=== PATIENT | male | born 1990 | race Two or more races ===

== ENCOUNTER 2018-04-24 13:23 | Inpatient (IN) | payer SELFPAY ==
[2018-04-24] MEDS ORDERED: NS 1,000 ML IV ONE (13:30)
[2018-04-24] MEDS ORDERED: fentaNYL 100 MCG/2 ML INJ IVP ONE (13:31)
--- NOTE | 2018-04-24 13:36 | EDPHY ---
Addendum entered and electronically signed by Dani Newell, PAC 04/24/18 16:41 : Patient had gone to the floor. Dr. Remedios Castro and I spoke in the ER at 4:25 p.m.. She expressed concern over the patient's admission to her service, notably the patient was now complaining of g neurologic deficits and urinary retention as well as concerns over CT imaging of the chest which showed 2 small lucencies in the chest which may be related to blebs/pneumatocele. Dr. Remedios Castro recommend that Trauma surgery admit the patient and that the patient be brought back down to the ER. Patient was brought back down to the ER. I spoke with Dr. Sarabjti Silva who is in the ER at 4:40 p.m. to evaluate and admit patient primarily. Original Note: H & P Stated Complaint: head/back pain - Personal History Current Tetanus/Diphtheria Vaccine: Unsure Current Tetanus Diphtheria and Acellular Pertussis (TDAP): Unsure - Medical/Surgical History Hx Asthma: No Hx Chronic Respiratory Disease: No Hx Diabetes: No Hx Cardiac Disease: No Hx Renal Disease: No Hx Cirrhosis: No Hx Alcoholism: No Hx HIV/AIDS: No Hx Splenectomy or Spleen Trauma: No Other PMH: PMH: denies Time Seen by Provider: 04/24/18 13:29 HPI/ROS: CHIEF COMPLAINT: Multiple complaints post fall from roof HISTORY OF PRESENT ILLNESS: 28-year-old healthy male arrives via private vehicle, not an ER triage trauma activation, complaining of headache, thoracic pain, lumbar back pain after he was on the roof, approximately 15-20 feet high, slipped, fell backward onto grass impacting his back and occipital head, facing the jenny. Positive brief loss of consciousness per co-worker. No seizure activity. Coworkers were able to pick him up and put him the back of a vehicle and transport him. He is complaining of headache, midline C-spine pain, thoracic pain, lumbar pain. He denies peripheral paresthesia, weakness, numbness, peripheral musculoskeletal pain, calcaneus or knee injury or pain. Denies alcohol or drug use. Denies anticoagulant use history. He is primarily Palestinian-speaking Last oral intake was dinner last night PRIMARY CARE PROVIDER: None REVIEW OF SYSTEMS: A ten point review of systems was performed and is negative with the exception of the items mentioned in the HPI PAST MEDICAL/SURGICAL HISTORY: no anticoagulant use, no relevant medical/ surgical history SOCIAL HISTORY: denies alcohol use at time of incident. 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 Primarily Palestinian speaking PHYSICAL EXAM 1) GENERAL: Well-developed, well-nourished, alert and oriented. Appears uncomfortable. Answering questions appropriately. 2) HEAD: Normocephalic, atraumatic 3) HEENT: Pupils equal, round, reactive to light bilaterally. Negative Horners. Nasopharynx, oropharynx, clear. No deformity or angulation of nose. No septal hematoma. No rhinorrhea. No oral trauma. Ears bilaterally with normal tympanic membranes. No hemotympanum. No fluid or blood in the external auditory canal. No raccoon eyes. No Reddy sign. Teeth are normally aligned with no gross malocclusion, TMJ bilaterally nontender, facial bones nontender including the zygomatic arch, maxilla mandible. 4) NECK: Cervical collar is on.Cervical collar is removed while holding inline traction and patient is unable to completely differentiate between true midline pain versus just lateral of midline pain.Cervical collar is replaced at that point. 5) LUNGS: Clear to auscultation bilaterally, no wheezes, no rhonchi, no retractions. No obvious signs of trauma. No chest wall pain. No flaring, no grunting. Moving symmetrically. No crepitus. 6) HEART: [Regular rate and rhythm, 7) ABDOMEN: No guarding, no rebound, no focal tenderness, no peritoneal signs, no signs of trauma, no ecchymosis 8) MUSCULOSKELETAL: Moving all extremities, no focal areas of tenderness, no obvious trauma. Specifically, bilateral acetabulum nontender, bilateral knees nontender, bilateral feet and calcaneus nontender. Upper extremities nontender with no signs of trauma. 9) BACK: Patient logrolled while holding inline traction. Tender to palpation mid thoracic and mid lumbar region no visible trauma, no abrasion, laceration, no step-off, no effusion. Lower extremities have patella and Achilles reflexes intact to bilaterally strength 5/5. 10) SKIN: No laceration. No abrasion 11) : Normal male external genitalia no signs of trauma or straddle injury. No perineal injury or hematoma. 12) NEURO: Awake, alert, and oriented to person, place and time. Answers questions appropriately. There were no obvious focal neurologic abnormalities. No cerebellar dysfunction. Upper and lower extremities bilaterally with strength 5 / 5, reflexes 2+. DIFFERENTIAL DIAGNOSIS: Not necessarily in any particular order, my differential diagnosis includes, but is not limited to, concussion, skull fracture, intraparenchymal contusion, subarachnoid, subdural and epidural hematoma. The patient understands that this diagnosis is provisional and can never be 100% accurate. (Dani Newell) Constitutional: Initial Vital Signs Heart Rate 90 04/24/18 13:24 Respiratory Rate 24 H 04/24/18 13:24 Blood Pressure 133/75 H 04/24/18 13:24 O2 Sat (%) 99 04/24/18 13:24 O2 Delivery Mode Room Air O2 (L/minute) 3 Allergies/Adverse Reactions: No Known Drug Allergies Allergy (Verified 04/24/18 13:36) Home Medications: Medication Instructions Recorded Naproxen Sodium [Aleve 220 MG (*)] 220 mg PO BID PRN 04/24/18 Medical Decision Making - Diagnostics Imaging Results: Imaging Impressions Abdomen CT 04/24/18 13:31 Impression: 1. Acute mild compression fracture of the superior endplate of T12. 2. 2 tiny lucencies posterior to the right lung, which could related to blebs/ pneumatoceles or less likely pneumothorax. 3. Additional findings as above. Findings discussed with Dani Newell 04/24/2018 at 14:57. Cervical Spine CT 04/24/18 13:31 Impression: Normal noncontrast CT of the brain. CT cervical spine: Cervical vertebral body alignment is normal, and intervertebral disk spaces are maintained. Facet joints align normally. Craniocervical junction is intact. Impression: 1. Negative noncontrast CT of the cervical spine. Results called to. Pieter Newell PA-C, at 2:30 PM at the time of the interpretation. Chest CT 04/24/18 13:31 Impression: 1. Acute mild compression fracture of the superior endplate of T12. 2. 2 tiny lucencies posterior to the right lung, which could related to blebs/ pneumatoceles or less likely pneumothorax. 3. Additional findings as above. Findings discussed with Dani Newell 04/24/2018 at 14:57. Head CT 04/24/18 13:31 Impression: Normal noncontrast CT of the brain. CT cervical spine: Cervical vertebral body alignment is normal, and intervertebral disk spaces are maintained. Facet joints align normally. Craniocervical junction is intact. Impression: 1. Negative noncontrast CT of the cervical spine. Results called to. Pieter Newell PA-C, at 2:30 PM at the time of the interpretation. Lumbar Spine CT 04/24/18 13:31 Impression: 1. Acute mild compression fracture of the superior endplate of T12. 2. 2 tiny lucencies posterior to the right lung, which could related to blebs/ pneumatoceles or less likely pneumothorax. 3. Additional findings as above. Findings discussed with Dani Newell 04/24/2018 at 14:57. Thoracic Spine CT 04/24/18 13:31 Impression: 1. Acute mild compression fracture of the superior endplate of T12. 2. 2 tiny lucencies posterior to the right lung, which could related to blebs/ pneumatoceles or less likely pneumothorax. 3. Additional findings as above. Findings discussed with Dani Newell 04/24/2018 at 14:57. Images reviewed myself (Dani Newell) ED Course/Re-evaluation: 1:32 p.m.: After evaluating the patient I consulted with secondary supervising physician is Dr. Rehan Kearney who subsequently evaluated the patient. 2:36 p.m.: CT head and C-spine negative per Dr. Carson Medeiros interpretation. Images reviewed by myself 2:55 p.m.: CT chest abdomen pelvis including spinal reconstructions positive for T12 25% compression fracture otherwise negative. 3:00 p.m.: Re-evaluation, patient is complaining of continued pain. He remains neurologically intact. 3:02 p.m.: Consultation with Dr. Ayala will consult Neurosurgery 3:13 p.m.: Neurosurgery PA in the ER to evaluate patient. She recommends Adore brace. [facility] has been contacted 320 p.m. Phone consultation with Dr. Sarabjit Silva recommends neurosurgical service admit patient as he is single system trauma (Dani Newell) Other Provider: PHYSICIAN DOCUMENTATION: The patient was evaluated and managed by the Physician Slab Worker and myself. I have reviewed the chart and agree with the findings and plan of care as documented. In addition, I examined the patient myself at 1330. History confirmed as fall onto his back, mechanical. Primary complaint is back and neck pain. Says through ski technician he has decreased sensation whole body including both sides of face and all four extremities. Physical findings as follows: Alert, follows commands, moves all 4 extremities on command; testing sensation to light touch has symmetric stated decrease in both sides of face and all four extremities. Has decreased strength when asked to squeeze hands or move legs, but states is because of pain with effort and not inability to move. Plan for CT scan head cervical spine chest abdomen pelvis with spine reconstructions. 1459: CT scan reviewed, a T12 compression fracture, no other injuries viewed by radiologist. Admission trauma vs. neurosurgery. 1523: Discussed with Shira requested admit to Neurosurgery; will admit to [facility] Stiles in ED seeing patient. I am the secondary supervising physician. (Rehan Kearney) - Data Points Laboratory Results: Laboratory Results 04/24/18 13:15 04/24/18 13:15 Medications Given: Dexamethasone (Decadron Injection) 4 mg IVP Q6H ZENIA Stop: 10/22/18 00:59 Last Admin: 04/25/18 06:32 Dose: 4 mg Lactated Ringer's (Lr) 1,000 mls @ 125 mls/hr IV CONT ZENIA Stop: 10/21/18 17:29 Last Admin: 04/25/18 04:10 Dose: 1,000 mls Methocarbamol (Robaxin) 750 mg PO TID ZENIA Stop: 10/21/18 21:59 Last Admin: 04/24/18 22:06 Dose: 750 mg Morphine Sulfate (Morphine) 1 - 4 mg IVP Q1HR PRN PRN Reason: Pain, Severe Unable to Take PO Stop: 05/04/18 16:12 Last Admin: 04/25/18 07:32 Dose: 2 mg Oxycodone HCl (Oxycodone Ir) 5 - 10 mg PO Q4HRS PRN PRN Reason: Pain, Severe Able to Take PO Stop: 05/04/18 16:12 Last Admin: 04/25/18 01:07 Dose: 5 mg Discontinued Medications Dexamethasone (Decadron Injection) 10 mg IVP ONCE ONE Stop: 04/24/18 18:41 Last Admin: 04/24/18 19:01 Dose: 10 mg Fentanyl (Sublimaze) 100 mcg IVP EDNOW ONE Stop: 04/24/18 13:32 Last Admin: 04/24/18 13:37 Dose: 100 mcg Hydromorphone HCl (Dilaudid) 1 mg IVP EDNOW ONE Stop: 04/24/18 14:19 Last Admin: 04/24/18 14:21 Dose: 1 mg Sodium Chloride (Ns) 1,000 mls @ 0 mls/hr IV ONCE ONE; Wide Open PRN Reason: Protocol Stop: 04/24/18 13:31 Last Admin: 04/24/18 13:37 Dose: 1,000 mls Lorazepam (Ativan Injection) 1 mg IVP EDNOW ONE Stop: 04/24/18 17:14 Last Admin: 04/24/18 17:16 Dose: 1 mg Point of Care Test Results: Chemistry 04/24/18 13:33 POC Sodium 142 mEq/L mEq/L (135-145) POC Potassium 3.1 mEq/L L mEq/L (3.3-5.0) POC Chloride 105 mEq/L mEq/L (97-110) POC BUN 12 mg/dL mg/dL (7-23) POC Creatinine 0.7 mg/dL mg/dL (0.7-1.3) POC Glucose 97 mg/dL mg/dL (70-100) ISTAT H&H 04/24/18 13:33 POC Hgb 17.7 gm/dL H gm/dL (13.7-17.5) POC Hct 52 % H % (40-51) Departure - Departure Disposition: [facility] Inpatient Acute Clinical Impression: Thoracic compression fracture Qualifiers: Encounter type: initial encounter Fracture type: closed Qualified Code(s): S22.000A - Wedge compression fracture of unspecified thoracic vertebra, initial encounter for closed fracture Fall from roof Qualifiers: Encounter type: initial encounter Qualified Code(s): W13.2XXA - Fall from, out of or through roof, initial encounter Condition: Fair
[2018-04-24] MEDS ORDERED: IOPAMIDOL (ISOVUE-300) 100 ML BTL ONE (13:45)
[2018-04-24 13:47] LABS: PLATELET COUNT 278 10^3/uL (150-400)
[2018-04-24 13:49] LABS: INR 0.93 (0.83-1.16); PROTIME(PATIENT) 12.7 SEC (12.0-15.0)
[2018-04-24] MEDS ORDERED: HYDROmorphONE/DILAUDID 2 MG/ML INJ IVP ONE (14:18)
[2018-04-24] MEDS ORDERED: HYDROmorphONE/DILAUDID 1 MG/ML INJ ONE (14:19)
--- NOTE | 2018-04-24 16:23 | GCON ---
[f rep st] CONSULTATION DATE OF CONSULTATION: 04/24/2018 REASON FOR CONSULTATION: Neck pain, midback pain, status post fall. HOSPITAL COURSE/HISTORY/MAJOR MEDICAL FINDINGS: The patient is a Malagasy-speaking only 28-year-old g entleman who fell approximately 20 feet onto his back earlier today. He does report a positive loss of consciousness and is now complaining of pain in his head, pain at the base of his neck, pain in hi s mid back radiating down his legs, and then, he has numbness over his entire body from his mid neck down to his toes. He also states that he feels generally weak in his bilateral upper and bilateral l ower extremities. He is having some urinary retention and has been unable to void. REVIEW OF SYSTEMS: Negative other than what is stated in the HPI. Please see pertinent negatives, p ertinent positives. PAST MEDICAL HISTORY: Negative. Patient states that he has no past medical problems. PAST SURGICAL HISTORY: None. SOCIAL HISTORY: Patient denies drinking any alcohol. He states that he stopped drinking alcohol and using any type of illegal drugs in August. He is Malagasy-speaking only and is in the ER with his mother. 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 FAMILY HISTORY: His dad has a history of heart disease and his mother has a history of diabetes. ALLERGIES: No known drug allergies. MEDICATIONS: No medications. PHYSICAL EXAMINATION: VITAL SIGNS: BP is 123/67, heart rate is 89. He is 100% on 2 L nasal cannula . Temperature is 36.0. NEUROLOGIC: Patient is in no acute distress. He is alert and oriented x3. He answers questions appropriately, and his affect appropriate for the given situation. His face is symmetric. Tongue protrudes midline. PERRLA. The patient does move all extremities, though he sta huseyin that it is hard for him to move his arms, that is painful and they feel weak. Grossly, he is a 5 - in his deltoids, triceps, biceps, wrist flexors, extensors, interossei, intrinsic venue manager, iliopsoas, hamstrings, quadriceps, plantar flexion, dorsiflexion, and EHL. The patient is stiff and guarding to pain. Did not elicit clonus or Babinski reflex. Sensation is intact in bilateral upper and bilateral lower extremities, though the patient does that feeling is somewhat diminished. DIAGNOSTIC REVIEW: Patient underwent a head CT, which was negative for any acute intracranial hemorr argelia, mass effect. He also underwent a cervical spine CT that was negative for any acute cervical spine fracture. The patient underwent a thoracic CT, which demonstrated a mild acute compression fracture of T12. Th ere is a tiny lucency posterior to the right lung, which could represent blebs or less likely pneumot horax. Lumbar spine CT re-demonstrates a fracture of T12. There are no other intraabdominal findings. Abdominal CT. Please see lumbar CT interpretation. DISCUSSION/DECISION-MAKING: The patient is a 28-year-old Malagasy-speaking gentleman who fell approxi mately 20 feet from a roof today. He is having numbness from his neck down with neck pain and low ba ck pain. He does have evidence of a T12 fracture. There is no acute fractures noted in the cervical spine. Given the patient's presentation of diffuse weakness, diffuse numbness, we will go ahead and order a cervical spine MRI and a thoracic spine MRI to further evaluate his spinal cord. He will be admitted to optimize his pain management. This was discussed in detail with Dr. Remedios Castro. /[id number]/MODL
[2018-04-24] MEDS: oxyCODONE IR 5 MG TAB PO PRN ×2 (16:30→22:05)
--- NOTE | 2018-04-24 16:46 | SOAPPROG ---
SOAP Progress Note Assessment/Plan: Assessment: Seen and examined agree with dictation by lissett fernandez pac patient needs stat MRI and review before dosposition to r/o sci in setting of weakness, retention and decreased sensation. Will review and make recommendations. Monitor SBP to maintain map in interim, maintain spinal precautions. Call collection systems technician neurosurgeon with results call with change in neuro status Plan: 04/24/18 16:44 Objective: Vital Signs Temp Pulse Resp BP Pulse Ox 36.8 C 95 17 133/86 H 100 04/24/18 16:08 04/24/18 16:08 04/24/18 16:08 04/24/18 16:08 04/24/18 16:08 PT 12.7 SEC (12.0-15.0) 04/24/18 13:15 INR 0.93 (0.83-1.16) 04/24/18 13:15 ICD10 Worksheet Patient Problems: Problems Problem Status Onset Fall from roof Acute Thoracic compression fracture Acute
[2018-04-24] MEDS ORDERED: LORazepam 2 MG/ML INJ ONE (17:12)
[2018-04-24] MEDS ORDERED: ONDANSETRON 4 MG/2 ML VIAL IVP PRN (17:12)
[2018-04-24] MEDS ORDERED: LORazepam 2 MG/ML INJ IVP ONE (17:13)
[2018-04-24] MEDS ORDERED: LR 1,000 ML IV SCH (17:30)
--- NOTE | 2018-04-24 17:45 | GHP ---
[f rep st] HISTORY AND PHYSICAL DATE OF ADMISSION: 04/24/2018 CHIEF COMPLAINT: Inability to void, generalized weakness, neck pain. PRESENT ILLNESS: A 28-year-old male who fell off a roof, landing on his back. There was ap parently brief loss of consciousness. He was brought to the hospital where a variety of diagnostic t ests were done including CT of head, neck, chest, abdomen and pelvis. Remarkable findings were a T12 compression fracture with approximately 25% loss of height anteriorly, no obvious impingement on the spinal cord, as well as infinitesimally small air bubbles in the periphery of the lung which I suspe ct are small blebs. Otherwise essentially normal studies. While neurological exam was first thought to be normal, the patient was brought back to the emergency room after briefly going up stairs and w as unable to void upstairs, and a catheter was placed, which reportedly gave 800 cc of urine. I repe ated a bladder scan in the emergency department and 11 cc were found. The patient still tells me he feels like he needs to void and cannot. ALLERGIES: None. CURRENT MEDICATIONS: Naprosyn occasionally. SOCIAL HISTORY: Nonsmoker, nondrinker. 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 PHYSICAL EXAM: HEENT: Atraumatic. I took off his collar and palpated his neck. It is nontender. He states his head hurts and his neck hurts. CHEST: There is no supraclavicular nor axillary crepit us. Clavicles are intact. UPPER EXTREMITIES: Appear atraumatic. LUNGS: Clear. HEART: Normal S1 , S2 without murmur. Sternum is stable to compression. ABDOMEN: Soft, benign, nontender. PELVIS: Stable to compression. LOWER EXTREMITIES: Atraumatic. There seems to be hammertoe deformity, part icularly on the right foot. Both feet are slightly odd in morphology. NEURO: The patient response to virtually all neurologic questions with the response of a little. In other words when I touch his feet, he feels it only a little, both dorsum and plantar surfaces. When I touch his hands, he feels it only a little. When I touches his face, he feels it only a little. Motor function seems globall y depressed. When asked to dorsiflex or plantar flex his foot, it is approximately 2/5 in strength. When asked to raise his arm vertical off the bed, he responds very slowly. Aids Counselor strength is about a 2/5 in both hands. It is unclear from his general affect whether he is mentally stung by the whole injury process and incapable of exerting force or he has a neurologic deficit which is hard to explai n based on his mechanism. IMAGING: CT of his head and neck were normal. ASSESSMENT AND PLAN: Neurosurgery has briefly seen the patient, and an MRI of the neck and thoracolu mbar spine is pending. I am not at all concerned about his chest findings of 2 tiny air bubbles. Hi s bladder is currently empty, and we will have to follow this along with bladder scanning and either place an indwelling catheter or do intermittent catheterization if he continues to be unable to void. Clearly 800 mL of retained urine is suggestive of urinary retention. In summary, neurologic deficits of unclear origin. Currently waiting for MRI of cervical and thoraco lumbar spine. He will be admitted to the intermediate care unit for neuro checks and fully evaluated by the neurosurgeon. /[id number]/MODL
[2018-04-24] MEDS ORDERED: DEXAMETHASONE 10 MG/ML VIAL IVP ONE (18:40)
[2018-04-24] MEDS ORDERED: DEXAMETHASONE 10 MG/ML VIAL ONE (18:42)
[2018-04-24] MEDS: METHOCARBAMOL 750 MG TAB PO SCH (22:06)
[2018-04-25] MEDS: DEXAMETHASONE 4 MG/ML VIAL IVP SCH ×4 (00:53→18:40)
[2018-04-25] MEDS: oxyCODONE IR 5 MG TAB PO PRN ×5 (01:07→22:47)
--- NOTE | 2018-04-25 07:22 | PDMN ---
Medical Necessity Medical necessity: Pt meets inpt criteria per MD order and Neurology GRG, est LOS>2MNfor ongoing eval and treatment of T12 compression fx after fall from roof , neurosurg consult, MRI, IV morphine and PO oxycodone for pain, IV Decadron, IVF, NPO, Q 2hr neuro checks, close monitoring on SDU, pt experiencing decreased sensation and urinary retention which will require further eval and treatment, PT/OT/SP evals pending.
--- NOTE | 2018-04-25 08:53 | NEUSURGPN ---
Assessment/Plan: 28y/o male s/p fall 20ft off second story roof with neck pain, low back pain and body numbness. Has a T12 mild compression fracture -Patient is gaurded with exam and is limited secondary to pain -Cervical MRI demonstrates moderate stenosis at C6/7 and disc degeneration at C5 /6 but there is no cord signal changes. -Continue hard cervical collar as patient as has neck pain -Continue Adore brace when>60degrees -Optimize pain management -Okay to eat -PT/OT/PUBLIC WORKS COMMISSIONER evals -Continue steroids,and Q2 hour neuro checks -Discussed in detail with Dr. Duncan -Please notify NS with any change in neuro/motor exam Subjective: Continues with body numbness and pain everywhere Objective: NAD MAEx4 but slowly secondary to pain. Reports diminished sensation in below the neck Catheter Insertion Date: 04/24/18 - Physician Discussed Patient with Dr.: Duncan Neurosurgery Physical Exam - Vitals, I&O, Labs I and O 04/24/18 04/25/18 04/26/18 05:59 05:59 05:59 Intake Total 2627 Output Total 1200 Balance 1427 Intake: Oral (ml) 750 IV Infused (ml) 1877 Lr 1,000 ml @ 125 mls/hr 877 IV CONT ZENIA Rx#: [id number] Output: Urine (ml) 1200 Catheter 1200 Vital Signs Temp Pulse Resp BP Pulse Ox 36.6 C 79 16 113/65 94 04/25/18 04:00 04/25/18 08:00 04/25/18 08:00 04/25/18 08:00 04/25/18 08:00 ICD10 Worksheet Patient Problems: Problems Problem Status Onset Fall from roof Acute Thoracic compression fracture Acute
--- NOTE | 2018-04-25 09:22 | ASMTCASEMG ---
Living Arrangements What is your living Answers: With One Parent arrangement? Who do you live with? Type Of Residence What kind of residence do Answers: House you live in? Discharge Plan Comments Coordination Status Comments Notes: Patient is a 28yo single male who fell off a roof (15-20 ft) and hit his back, occipital head, with a positive brief loss of consciousness per his co-worker. Patient is primarily Yi speaking. Patient was admitted for a T12 compression fracture, difficulty with urination. Patient has neurologic deficits of unknown origin. Awaiting MRI results. OT/PT/TANKERMAN have been ordered. Patient does not have a listing of insurance at this time. His place of employment is [employer]. D/C plan TBD. [facility] will follow. Date Signed: 04/25/2018 09:21 AM Electronically Signed By:Gabrielle Hodge LCSW
[2018-04-25] MEDS: METHOCARBAMOL 750 MG TAB PO SCH ×3 (09:46→21:40)
--- NOTE | 2018-04-25 09:48 | SOAPPROG ---
SOAP Progress Note Assessment/Plan: Assessment:tertiary exam 28 male with fall off roof/ t12 compression fx, cervical disc protrusion oriented/ chest clear, symmetric, nontender/ cor rr/ abd soft, nontender with bs extrem ok/ neuro kaur but weak 2/2 pain/ cn intact imp: c6 disc herniation, t12 compression fx Plan:cervical collar, back brace/ mobilization per NS 04/25/18 09:37 Objective: Vital Signs Temp Pulse Resp BP Pulse Ox 36.6 C 79 16 113/65 94 04/25/18 04:00 04/25/18 08:00 04/25/18 08:00 04/25/18 08:00 04/25/18 08:00 04/24/18 04/25/18 04/26/18 05:59 05:59 05:59 Intake Total 2627 Output Total 1200 Balance 1427 PT 12.7 SEC (12.0-15.0) 04/24/18 13:15 INR 0.93 (0.83-1.16) 04/24/18 13:15 ICD10 Worksheet Patient Problems: Problems Problem Status Onset Fall from roof Acute Thoracic compression fracture Acute
[2018-04-25] MEDS: DIAZEPAM 5 MG TAB PO PRN (11:12)
[2018-04-25] MEDS ORDERED: PROTOCOL POTASSIUM 1 DOSE MISC PRN (17:37)
--- NOTE | 2018-04-25 18:01 | GCON ---
[f rep st] CONSULTATION CRITICAL CARE CONSULTATION DATE OF CONSULTATION: 04/25/2018 REASON FOR CONSULTATION: Intensive care unit evaluation and medical management following a fall. HISTORY: The patient is a healthy 28-year-old who fell approximately 20 feet onto his back. He appa rently landed in some rocks. There was a loss of consciousness. He had head, neck, and back pain. Pain also radiated down into his legs. He also complained of coccyx pain. He had some bilateral upp er and lower extremity weakness which has improved and some urinary difficulties initially. He was s een by Trauma Surgery and Neurosurgery. He was admitted to the intensive care unit. Findings are re markable for a T12 fracture. There was no evidence of a significant head injury. CT scan of the hea d was negative. Subsequent MRIs showed only some moderate stenosis at C6-7 with a small disk herniat ion in that area. A [place] brace was placed, and he has been kept in a cervical collar. He has been cleared to eat and has been seen by Physical Therapy and Speech Therapy. He remains in the intensiv e care unit secondary to pain management and neuro checks. PAST MEDICAL HISTORY: Unremarkable. MEDICATIONS: He was taking p.r.n. Aleve at home. SOCIAL HISTORY: The patient is Lithuanian-speaking. Alcohol and tobacco are denied. 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 FAMILY HISTORY: Noncontributory/negative. REVIEW OF SYSTEMS: Negative x10. PHYSICAL EXAMINATION: GENERAL: A pleasant gentleman who complains of pain in his lower right occipi tiago region, neck, back, and coccyx. The pain in his extremities has improved. He says his strength and sensation feel fairly normal. He is sitting up in the chair. A hard collar and [place] brace are in place. VITAL SIGNS: Within normal limits. Blood pressure is 120/70, heart rate 90, respiratory rate 18. Room air saturations are 92%. He is afebrile. HEENT: Unremarkable for signs of obvious trauma. There is some tenderness to palpation over the right occipital area, but no ecchymosis or sw elling is found. NECK: In a hard collar. CHEST: Clear. Breath sounds are difficult to fully exami ne secondary to the [place] brace. They are diminished at the bases. HEART: Regular rate and rhythm without murmur or gallop. ABDOMEN: Soft, nontender. Bowel sounds are present but decreased. ADAM TOURINARY: A urine catheter is in place. Urine output is excellent. EXTREMITIES: He complains of some right foot pain with palpation of the lateral aspect of the right foot. There is no edema. CECILIA ROLOGIC: Appears intact, although is limited secondary to pain. DATABASE: Radiologic studies are as described elsewhere. Right foot film is negative for any acute fracture. There are some hammertoe deformities, and a liga mentous injury of the forefoot and midfoot cannot be excluded. Laboratory: White blood cell count was 12,000 on admission, hematocrit 47.8. Platelets are normal. PT and PTT are normal. Chemistries remarkable for a potassium of 3.1, but otherwise normal. Urinalysis was negative. Tox screen negative for alcohol. ASSESSMENT: 1. Status post fall with a mild T12 compression fracture and mild herniation of the C6-7 disk with s ome cord narrowing there. Cord itself showed no injuries. The patient is in a hard collar and a Oriental Orthodox ett brace when up. He is doing reasonably well. Pain control is an issue. He is being treated with morphine and oral oxycodone, Robaxin. In addition, he has been given Decadron. 2. Hypokalemia. Potassium replacement will be ordered. PLAN AND RECOMMENDATIONS: The patient will be kept in the intensive care unit on step-down unit stat us. Appropriate pain control will be maintained. Physical and speech therapies will continue to fol low. Neuro checks will be continued. Potassium protocol will be added, and electrolytes followed. Further plans and recommendations will be made based on his progress over the next 12-24 hours. /[id number]/MODL
[2018-04-26] MEDS: DEXAMETHASONE 4 MG/ML VIAL IVP SCH ×3 (01:12→12:43)
[2018-04-26] MEDS: oxyCODONE IR 5 MG TAB PO PRN ×4 (05:48→21:20)
[2018-04-26] MEDS: METHOCARBAMOL 750 MG TAB PO SCH ×3 (07:50→21:21)
--- NOTE | 2018-04-26 09:50 | TRAUMAPN ---
Trauma Progress Note Assessment/Plan: 28-year-old gentleman who fell 20 ft and landed on his feet complains of right foot pain. X-ray of right foot yesterday negative for pathology acute fracture question requirement for further imaging based on his pain profile. He has the T12 acute fracture and stenosis of C6/C7 as well as disc degeneration on C5/C6 Alert oriented Sclerae are anicteric pupils reactive Extra ocular motion intact Collar in place Lungs clear bilaterally Heart regular rate and rhythm Abdomen soft nontender nondistended Weak bilateral upper extremities to squeeze Left foot stronger than right foot with extension Neurologic injuries based on C-spine stinger as well as acute fracture of T12. Collar per Neurosurgery as well as Adore brace. PT OT. Pain control. Possible Ct hope/ MRI of foot today. Objective: Vital Signs Temp Pulse Resp BP Pulse Ox 36.5 C 66 17 127/69 H 92 04/26/18 08:00 04/26/18 08:00 04/26/18 08:00 04/26/18 08:00 04/26/18 08:00 Laboratory Results 04/26/18 05:44 04/25/18 04/26/18 04/27/18 05:59 05:59 05:59 Intake Total 2627 2300 Output Total 1200 3800 Balance 1427 -1500 PT 12.7 SEC (12.0-15.0) 04/24/18 13:15 INR 0.93 (0.83-1.16) 04/24/18 13:15
[2018-04-26] MEDS: DIAZEPAM 5 MG TAB PO PRN (10:32)
[2018-04-26] MEDS ORDERED: LACTULOSE 20 GM/30 ML UDCUP PO PRN (11:51)
[2018-04-26] MEDS ORDERED: BISACODYL 10 MG SUPP PR PRN (11:51)
--- NOTE | 2018-04-26 13:13 | NEUSURGPN ---
Assessment/Plan: 28y/o male s/p fall 20ft off second story roof with neck pain, low back pain and body numbness. Has a T12 mild compression fracture. Initially complaining of body numbness and weakness but this seems effort limited 2/2 pain. -Cervical MRI demonstrates moderate stenosis at C6/7 and disc degeneration at C5 /6 but there is no cord signal changes. -Continue hard cervical collar as patient as has neck pain -Continue Adore brace when >60 degrees -Optimize pain management -Okay to eat -PT/OT/REACTOR FUELING SUPERVISOR evals -Changed steroids to 4bid today, will continue to taper off quickly -okay for q4 neurochecks and TTF today -Please notify NS with any change in neuro/motor exam Subjective: still complaining of neck and back pain but in the chair feeding himself Urinary Catheter in Place: No Catheter Insertion Date: 04/24/18 Neurosurgery Physical Exam - Vitals, I&O, Labs I and O 04/25/18 04/26/18 04/27/18 05:59 05:59 05:59 Intake Total 2627 2300 Output Total 1200 3800 Balance 1427 -1500 Intake: Oral (ml) 750 1400 IV Intake (ml) 900 IV Infused (ml) 1877 Lr 1,000 ml @ 125 mls/hr 877 IV CONT ZENIA Rx#: [id number] Output: Urine (ml) 1200 3800 Catheter 1200 3800 Other: Bladder Scan Volume (ml) Catheter 0 Vital Signs Temp Pulse Resp BP Pulse Ox 36.5 C 66 17 127/69 H 92 04/26/18 08:00 04/26/18 08:00 04/26/18 08:00 04/26/18 08:00 04/26/18 08:00 Laboratory Results 04/26/18 05:44 ICD10 Worksheet Patient Problems: Problems Problem Status Onset Fall from roof Acute Thoracic compression fracture Acute
--- NOTE | 2018-04-26 14:23 | PDINTPN ---
Mobile Marketing Manager Progress Note Assessment/Plan: Assessment: Status post fall Mild C 5-6 disc herniation, mild T12 compression fracture without evidence of significant cord injury. In a hard collar and a Adore brace when up. On steroids. Pain control appears appropriate. R foot pain, without evidence of fracture by x-ray or CT Hypokalemia: On replacement protocols Plan: Continue present care and neuro checks. Continue pain management. Taper steroids per neuro surgery. Can possibly transfer to a medical-surgical/ neuro bed today. Subjective: Doing okay. Back, neck and foot pain present. Some tingling sensation lower extremities, strength better Objective: Vital Signs Temp Pulse Resp BP Pulse Ox 36.5 C 66 17 127/69 H 92 04/26/18 08:00 04/26/18 08:00 04/26/18 08:00 04/26/18 08:00 04/26/18 08:00 Laboratory Results 04/26/18 05:44 04/25/18 04/26/18 04/27/18 05:59 05:59 05:59 Intake Total 2627 2300 Output Total 1200 3800 Balance 1427 -1500 PT 12.7 SEC (12.0-15.0) 04/24/18 13:15 INR 0.93 (0.83-1.16) 04/24/18 13:15 Physical Exam - Physical Exam General Appearance: alert, no apparent distress EENT: PERRL/EOMI, other (On room air) Neck: other (Hard collar) Respiratory: lungs clear Cardiac/Chest: regular rate, rhythm, other ([place] brace in place) Abdomen: non-tender, soft, No normal bowel sounds (Decreased, present) Skin: normal color, warm/dry Extremities: other (Tenderness over right foot remains present), No pedal edema , No swelling (Tenderness) Neuro/Psych: no motor/sensory deficits (Moves all extremities but somewhat weak , nonfocal), sensory deficit (Complains of tingling sensation lower extremities) , No cognition abnormalities ICD10 Worksheet Patient Problems: Problems Problem Status Onset Thoracic compression fracture Acute Fall from roof Acute
[2018-04-26] MEDS: MAGNESIUM HYDROXIDE 30 ML UDCUP PO PRN (14:48)
[2018-04-26] MEDS: POLYETHYLENE GLYCOL 3350 17 GM PKT PO PRN (14:49)
[2018-04-26] MEDS: DEXAMETHASONE 4 MG TAB PO SCH (21:20)
[2018-04-27] MEDS: SENNOSIDES/DOCUSATE SODIUM TAB PO SCH ×3 (00:17→20:15)
[2018-04-27] MEDS: oxyCODONE IR 5 MG TAB PO PRN ×5 (04:51→20:16)
--- NOTE | 2018-04-27 07:03 | NEUSURGPN ---
Assessment/Plan: 28y/o male s/p fall 20ft off second story roof with neck pain, low back pain and body numbness. Has a T12 mild compression fracture. Initially complaining of body numbness and weakness but this seems effort limited 2/2 pain. -Cervical MRI demonstrates moderate stenosis at C6/7 and disc degeneration at C5 /6 but there is no cord signal changes. -Continue hard cervical collar as patient as has neck pain -Continue Adore brace when >60 degrees -Optimize pain management, improved and more comfortable this morning -PT/OT/SKEIN WINDER evals -Changed steroids to 4bid today, will continue to taper off quickly -Can work towards dispo if improved in the next 1-2 days -Please notify NS with any change in neuro/motor exam Subjective: Still ahs some right sided neck pain and low back pain. Still some little decrease in Sensation in arms and legs Objective: More comfortable, sitting upright in bed this am. NAD A&Ox3 MAEx4 5/5 and equal in BUE and BLE. Catheter Insertion Date: 04/24/18 - Physician Discussed Patient with : [facility] Physical Exam - Vitals, I&O, Labs I and O 04/26/18 04/27/18 04/28/18 05:59 05:59 05:59 Intake Total 2300 1650 Output Total 3800 1650 Balance -1500 0 Intake: Oral (ml) 1400 1650 IV Intake (ml) 900 Output: Urine (ml) 3800 1650 Bedside Commode 750 Catheter 3800 750 Urinal 150 Other: Intake Quantity Yes Sufficient Number of Voids Bedside Commode 1 Number of Stools Bedside Commode 1 Bladder Scan Volume (ml) Catheter 0 Vital Signs Temp Pulse Resp BP Pulse Ox 36.6 C 58 L 16 111/58 L 95 04/27/18 04:00 04/27/18 04:00 04/27/18 04:00 04/27/18 04:00 04/27/18 04:00 Laboratory Results 04/27/18 04:20 04/27/18 04:20 ICD10 Worksheet Patient Problems: Problems Problem Status Onset Fall from roof Acute Thoracic compression fracture Acute
[2018-04-27] MEDS: POLYETHYLENE GLYCOL 3350 17 GM PKT PO PRN (08:48)
[2018-04-27] MEDS: METHOCARBAMOL 750 MG TAB PO SCH ×3 (08:48→21:49)
[2018-04-27] MEDS: DEXAMETHASONE 4 MG TAB PO SCH ×2 (08:48→20:15)
--- NOTE | 2018-04-27 09:09 | TRAUMAPN ---
Trauma Progress Note Assessment/Plan: 28y/o male s/p fall 20ft off second story roof with neck pain, low back pain and body numbness. Has a T12 mild compression fracture. Has pain in right foot - CT negative -Cervical MRI demonstrates moderate stenosis at C6/7 and disc degeneration at C5 /6 but there is no cord signal changes. -Continue hard cervical collar as patient as has neck pain -Continue Adore brace when >60 degrees -PT/OT/FURNITURE UPHOLSTERER APPRENTICE evals -Steroids per NSG - may be contributing to wbc. Will order CBC for tomorrow to make sure it is trending Subjective: S: Complains of neck, back and r foot pain Objective: Vital Signs Temp Pulse Resp BP Pulse Ox 36.7 C 64 16 109/55 L 94 04/27/18 07:23 04/27/18 07:23 04/27/18 07:23 04/27/18 07:23 04/27/18 07:23 Laboratory Results 04/27/18 04:20 04/27/18 04:20 04/26/18 04/27/18 04/28/18 05:59 05:59 05:59 Intake Total 2300 1650 Output Total 3800 1650 425 Balance -1500 0 -425 PT 12.7 SEC (12.0-15.0) 04/24/18 13:15 INR 0.93 (0.83-1.16) 04/24/18 13:15 Physical Exam - Physical Exam General Appearance: WD/WN, no apparent distress EENT: PERRL/EOMI, normal ENT inspection, No scleral icterus (R), No scleral icterus (L), No hearing deficit Neck: other (in collar) Respiratory: chest non-tender, lungs clear Cardiac/Chest: regular rate, rhythm Abdomen: normal bowel sounds, non-tender, soft Extremities: normal range of motion Neuro/Psych: other (some numbness. Pain in back when moving foot)
[2018-04-27] MEDS: DIAZEPAM 5 MG TAB PO PRN ×2 (09:57→18:32)
--- NOTE | 2018-04-27 12:03 | ASMTCMCOM ---
CM Note CM Note Notes: Pt will have inpt rehab eval on Saturday. Pt's insurance situation unclear. Pt's mother provided a letter from pt's employer, [employer], stating that he makes $945/mo.Alerted financial and [employer]. Letter in chart. CM to follow. Date Signed: 04/27/2018 12:02 PM Electronically Signed By:Fabienne Latif LCSW
[2018-04-28] MEDS: oxyCODONE IR 5 MG TAB PO PRN ×4 (03:12→18:20)
[2018-04-28] MEDS: DIAZEPAM 5 MG TAB PO PRN (03:14)
[2018-04-28 05:02] LABS: PLATELET COUNT 248 10^3/uL (150-400)
[2018-04-28] MEDS: SENNOSIDES/DOCUSATE SODIUM TAB PO SCH ×2 (09:31→21:35)
[2018-04-28] MEDS: METHOCARBAMOL 750 MG TAB PO SCH ×3 (09:31→21:36)
[2018-04-28] MEDS: DEXAMETHASONE 4 MG TAB PO SCH ×2 (09:31→21:35)
--- NOTE | 2018-04-28 09:34 | NEUSURGPN ---
Assessment/Plan: 28y/o male s/p fall 20ft off second story roof with neck pain, low back pain and body numbness. Has a T12 mild compression fracture. Initially complaining of body numbness and weakness but this seems effort limited 2/2 pain. -Cervical MRI demonstrates moderate stenosis at C6/7 and disc degeneration at C5 /6 but there is no cord signal changes. -Continue hard cervical collar as patient as has neck pain -Continue Adore brace when >60 degrees -Optimize pain management, improved and ambulated to bathroom with brace independently per RN report -Will give one dose Toradol today and start low dose gabapentin -Patient complaining of right foot pain, xrays done did not demonstrate and acute fracture -PT/OT/UROLOGIST PHYSICIAN evals -Steroids-will continue to taper off quickly -Can work towards dispo if improved in the next 1-2 days, case management to eval dispo options -Please notify NS with any change in neuro/motor exam Discussed patient with Dr Duncan Subjective: Right foot pain, bilateral leg pain Objective: sitting upright in bed this am A&Ox3 MAEx4 5/5 and equal in BUE and BLE Neuro Check Frequency: per routine Urinary Catheter in Place: No Catheter Insertion Date: 04/24/18 - Physician Discussed Patient with Dr.: [facility] Physical Exam - Vitals, I&O, Labs I and O 04/27/18 04/28/18 04/29/18 05:59 05:59 05:59 Intake Total 1650 875 Output Total 1650 885 350 Balance 0 -10 -350 Intake: Oral (ml) 1650 875 Output: Urine (ml) 1650 885 350 Bedside Commode 750 Catheter 750 Urinal 150 885 350 Other: Intake Quantity Yes Yes Sufficient Number of Voids Bedside Commode 1 Toilet 1 Urinal 1 Number of Stools Bedside Commode 1 Vital Signs Temp Pulse Resp BP Pulse Ox 36.3 C 56 L 13 113/64 95 04/28/18 08:00 04/28/18 08:00 04/28/18 08:00 04/28/18 08:00 04/28/18 08:00 Laboratory Results 04/28/18 04:34 04/28/18 04:34 ICD10 Worksheet Patient Problems: Problems Problem Status Onset Fall from roof Acute Thoracic compression fracture Acute
[2018-04-28] MEDS ORDERED: KETOROLAC 30 MG/1 ML SDV IVP ONE (09:35)
[2018-04-28] MEDS: GABAPENTIN 100 MG CAP PO SCH ×2 (15:59→21:36)
--- NOTE | 2018-04-28 16:53 | ASMTCMCOM ---
CM Note CM Note Notes: Pt admitted to hospital after falling off roof while working. Stephanie from [employer] met with pt and he should qualify for emergency Medicaid but otherwise has no insurance for any rehab needs. PT/OT recommendation is for Inpt Rehab, CM to f/u with Veda at inpt rehab to find out if they can help with this pt. DC Plan: TBD Date Signed: 04/28/2018 04:52 PM Electronically Signed By:Eboni Alberto RN
[2018-04-28] MEDS ORDERED: MELATONIN 3 MG TAB PO PRN (20:41)
--- NOTE | 2018-04-28 20:58 | PDCONSULT ---
Snow Plow Operator Note: PSYCHIATRY MD CONSULTATION Requesting provider: Zina Farah MANAGEMENT INSTRUCTOR, Neurosurgical service Date of request and evaluation: 04/28/2018 Reason for request: Evaluation and medication recommendations for expressed passive suicidal ideations and insomnia s/p fall with TBI and back injury Time spent interviewing patient: 55 minutes, with certified prosthetist/orthotist Juany. Spiritual support also met with patient prior to current evaluation. Also spoke with MANAGEMENT INSTRUCTOR and RN regarding this patient. Patient is American-speaking only. 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 Complains of diffuse body aches, numbness/tingling, weakness, headaches and occasional vision changes (losing focus), with difficulty concentrating, +often reliving the trauma with thinking/feeling he is falling, and perseverative thoughts/worries about his future, +insomnia. Has been working to support himself, pay rent for him and his with unborn child, and trying to support extended family (including his mother and sending $ to [employer] to support 2 nephews). He admits to feeling depressed because culturally, as a man, he does not feel worthwhile or useful if he is unable to work and support his family. is expecting their 1st child, a son, in early July. "I want to fight and overcome this...I don't want to ..." "I am worried about work, no resources, paying rent...When I leave, if I can return to same work? It is stressful to be poor." "I feel thankful to the Lord that I did not ...I have to fight...if I am well , I can help my family." Able to state he now understands this "recovery is a process, I didn't understand this before". Admits to +depressed mood, occasional crying spells, decr concentration, decr energy, sleep disturbance, and recently having passive SI, with thoughts to not wake up after closing eyes. Does not feel this way presently, because family and friends have been supportive, and staff has been helpful and encouraging. Is trying to remain hopeful with this support, and his spiritual beliefs, and states this gives him the motivation to work hard on his recovery with hope to return to work and hold/play with his yet unborn son. Worries about his mother who has already lost 2 of her 3 sons, and has looked very saddened on her recent visit to see him. +insomnia, reporting only brief periods of sleep, trouble falling and staying asleep, and +intrusive recollections of falling. PAST PSYCH HX: Denies formal dx or treatment for any psychiatric illness. Admits to feeling he was recently "getting over" sadness/depression related to loss of his 2 brothers. Never on medications. SUBSTANCE USE HX: denied recent/current. Tried smoking socially and EtOH with friends after work socially and occasionally when younger. FAMILY PSYCH HX: denies, although reports mother seems more depressed recently SOCIAL HX: From [place]. of 1.5yrs is and expecting son 08/02. Currently renting a "not so nice" basement in [place] with his . Mother in [place], and patient helps her pay rent. Mother works in housekeeping. Has 2 sisters in the [place], and 2 brothers were killed in violence in [place] within past 3 years (one during Christmastime and one on his ), one brother had just gotten visa to come to [place]. 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 MSE: alert, calm, cooperative, male lying in hosp bed, neck brace restricting movement, soft-spoken, low voume speech, normal rate, fair eye contact, mood depressed, affect restricted, dysphoric, no thought disorder evident, denied psychotic symptoms, admits to recent passive SI but denied any current suicidal thoughts, plan or intent. denied any thoughts to harm others. insight seemed good, judgment seemed intact. formal cognitive assessment not done. pt was alert to person, hosp, situation. date and time not asked. 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 Patient recalls falling, but then reports loss of consciousness, with no memory until he woke up in the hospital several hours later with family around on 04/24/18. Over his hospital course, he has continued to struggle with pain, weakness, numbness, and emotional stressors related to this fall. He expressed passive suicidal ideation recently but denies any plans or intent to harm himself, and reports being motivated for recovery because he has , mother, and is an expectant father. Seems to have experienced some depressive vs bereavement symptoms after his 2 brothers were killed in [place], and now re-experiencing such symptoms following current injury. Worried about how to support immediate and extended family, if he will be able to return to work, and finances, if he will physically be able to hold/carry/play with his son (due 08/02), also has no insurance. Having headaches, vertigo, concentration problems, insomnia in addition to pain , weakness, sensory complaints. DIAGNOSIS: Adjustment d/o with depressed mood Acute Stress Disorder Neurocognitive disorder, unspecified, due to Traumatic Brain Injury RECOMMENDATIONS: -Not felt to be at any acute risk of self harm and does not meet M-1 criteria for invol psychiatric hospitalization at this time. Patient expresses future- oriented thinking, with realistic worries, and is motivated to live and work on recovery by his focus on his family, although culturally admits to struggling with not being able to provide for his family at this time. -patient seems to have sustained significant TBI based on his reported LOC, reporting cognitive dysfunction (confusion, including not knowing what to do when looking at telephone). Query whether MRI would be of benefit to assess extent of injury. also ST assessment. Will add B12 and TSH to labs. -Pt and family will need education on TBI and possible sequelae. also referral to any support services in community if available (like [facility] [place]), lizzy if any new zealander speaking support/written education. TBI can also place pt at further incr risk of depression. Education in American about depression and acute stress disorder/ptsd would be helpful since patient is also at increased risk of depression and PTSD, -Recommend provide written information in addition to verbal, since reports forgetfulness, and is with TBI. Provided with paper and pen, and also encouraged pt and to write questions and concerns since they report having many when alone or no regional property manager around, but then forget. -With TBI, and his possible related cognitive impairment, would limit or avoid any meds which could cause worsening of cognition. -Would initially trial Mirtazapine 15mg at HS, an antidepressant which can also be helpful for sleep. Lower dose more effective for sleep. And add Melatonin prn for insomnia. Likely will need addition of SSRI for anxiety/depression as he reports having perseverative worries related to current stressors and life changes, and possible premorbid depression. Will make one med change at at time for now. Does have prn Valium but for muscle spasms. Will continue to follow and assess. -Also, referral to outpatient mental health after d/c would be important for additional therapy support and to psychiatry for ongoing monitoring of medications. And any resources for additional financial supports, including donations and resources for new parents would be helpful. -Will also discuss with behavioral health RN, bEoni Servin for possible providing of further support/coping strategies while in hospital. Pt also finds spiritual support supportive. Patient is at increased risk of developing PTSD. -Cont with pain management- pt notes neck brace very uncomfortable and his understanding was that a smaller one was going to be provided. Also R foot pain , states he was told he would get some type of support for his foot to keep it in a neutral position, but not sure if this was ordered. -Recommend use of certified prosthetist/orthotist as much as possible to prevent any miscommunications. Also provide with written information in new zealander, and assess his level of understanding of written info (perhaps ST can help with this) lizzy with TBI and unknown level of education Thank you for consulting Psychiatry service. Will continue to follow along during hospital course and make recommendations as indicated. Please do not hesitate to contact [facility] to call me with any questions.
[2018-04-28] MEDS: MIRTAZAPINE 15 MG ODTAB PO SCH (21:35)
[2018-04-29] MEDS: oxyCODONE IR 5 MG TAB PO PRN ×4 (04:11→21:33)
--- NOTE | 2018-04-29 07:37 | NEUSURGPN ---
Assessment/Plan: 28y/o male s/p fall 20ft off second story roof with neck pain, low back pain and body numbness. Has a T12 mild compression fracture. Initially complaining of body numbness and weakness but this seems effort limited 2/2 pain. -Cervical MRI demonstrates moderate stenosis at C6/7 and disc degeneration at C5 /6 but there is no cord signal changes. -Continue hard cervical collar as patient as has neck pain, will have [employer] fit with [place] collar today -Continue Adore brace when >60 degrees -Optimize pain management, started Gabapentin 100mg TID yesterday, patient still reports tingling/pain in all extremities this am -Patient complaining of right foot pain, xrays done did not demonstrate and acute fracture -PT/OT/FILAMENT TESTER evals -Steroids-will continue to taper off quickly -Can work towards dispo if improved in the next 1-2 days, case management to eval dispo options -Patient reported depression, having flashbacks of fall and trouble sleeping yesterday. Psych consulted-we appreciate their input on his care. -Please notify NS with any change in neuro/motor exam Discussed patient with Dr Duncan Subjective: Continued pain in all extremities Objective: sitting upright in bed this am A&Ox3 MAEx4 5/5 and equal in BUE and BLE Decreased sedation in BLE to light touch Neuro Check Frequency: per routine Urinary Catheter in Place: No Catheter Insertion Date: 04/24/18 - Physician Discussed Patient with Dr.: Duncan Neurosurgery Physical Exam - Vitals, I&O, Labs I and O 04/28/18 04/29/18 04/30/18 05:59 05:59 05:59 Intake Total 875 Output Total 885 350 Balance -10 -350 Weight 72.57 kg Intake: Oral (ml) 875 Output: Urine (ml) 885 350 Urinal 885 350 Other: Intake Quantity Yes Sufficient Number of Voids Toilet 1 1 Urinal 1 Number of Stools Toilet 1 Bladder Scan Volume (ml) Toilet 201 Vital Signs Temp Pulse Resp BP Pulse Ox 36.5 C 77 16 135/76 H 95 04/28/18 20:00 04/28/18 20:00 04/28/18 20:00 04/28/18 20:00 04/28/18 20:00 Laboratory Results 04/28/18 04:34 04/29/18 04:45 ICD10 Worksheet Patient Problems: Problems Problem Status Onset Fall from roof Acute Thoracic compression fracture Acute
[2018-04-29] MEDS: METHOCARBAMOL 750 MG TAB PO SCH ×3 (09:10→21:34)
[2018-04-29] MEDS: GABAPENTIN 100 MG CAP PO SCH ×3 (09:11→21:35)
[2018-04-29] MEDS: MAGNESIUM HYDROXIDE 30 ML UDCUP PO PRN (09:12)
[2018-04-29] MEDS: DEXAMETHASONE 4 MG TAB PO SCH ×2 (09:12→21:34)
[2018-04-29] MEDS: SENNOSIDES/DOCUSATE SODIUM TAB PO SCH ×2 (09:12→21:36)
[2018-04-29] MEDS: DIAZEPAM 5 MG TAB PO PRN (13:07)
[2018-04-29] MEDS: ENOXAPARIN 40 MG/0.4 ML SYR SC SCH (13:08)
[2018-04-29] MEDS: MIRTAZAPINE 15 MG ODTAB PO SCH (21:34)
[2018-04-30] MEDS: oxyCODONE IR 5 MG TAB PO PRN ×4 (03:14→20:44)
[2018-04-30] MEDS: METHOCARBAMOL 750 MG TAB PO SCH ×3 (06:01→17:03)
--- NOTE | 2018-04-30 07:34 | NEUSURGPN ---
Assessment/Plan: Assessment: 28 y/o male s/p fall 20 ft off second story roof with neck pain, low back pain and body numbness. Has a T12 mild compression fracture. Initially complaining of body numbness and weakness but this seems effort limited 2/2 pain Plan: -prior cervical MRI demonstrates moderate stenosis at C6/7 and disc degeneration at C5/6 but there is no cord signal changes -continue hard cervical collar as patient as has neck pain-[place] fitting well -continue [place] brace when >60 degrees and out of bed -optimize pain management, started Gabapentin 100mg TID, patient still reports tingling in all extremities this am -patient complaining of right foot pain, xrays done did not demonstrate and acute fracture -PT/OT/SHAPE CARVER-CPM -Steroids-will continue to taper off quickly -Can work towards dispo if improved in the next 1-2 days, case management to eval dispo options -Patient reported depression, having flashbacks of fall and trouble sleeping yesterday. Psych consulted-we appreciate their input on his care. -Please notify NS with any change in neuro/motor exam -discussed patient with Dr Duncan Subjective: No new complaints or concerns. Chart reviewed Objective: Awake and alert. NAD A&Ox3 MAEx4 5/5 and equal in BUE and BLE Decreased sedation in BLE to light touch with right worse than left Neuro Check Frequency: per routine Urinary Catheter in Place: No Catheter Insertion Date: 04/24/18 - Physician Discussed Patient with : [facility] Neurosurgery Physical Exam - Vitals, I&O, Labs I and O 04/29/18 04/30/18 05/01/18 05:59 05:59 05:59 Intake Total 350 Output Total 350 400 Balance -350 -50 Weight 72.57 kg Intake: Oral (ml) 350 Output: Urine (ml) 350 400 Toilet 400 Urinal 350 Other: Intake Quantity Yes Sufficient Number of Voids Toilet 1 1 Urinal 1 Number of Stools Toilet 1 Bladder Scan Volume (ml) Toilet 201 Vital Signs Temp Pulse Resp BP Pulse Ox 36.6 C 70 16 126/71 H 94 04/30/18 00:00 04/30/18 00:00 04/30/18 00:00 04/30/18 00:00 04/30/18 00:00 Laboratory Results 04/28/18 04:34 08/01/18 04:44 ICD10 Worksheet Patient Problems: Problems Problem Status Onset Fall from roof Acute Thoracic compression fracture Acute
[2018-04-30] MEDS: ENOXAPARIN 40 MG/0.4 ML SYR SC SCH (10:11)
[2018-04-30] MEDS: GABAPENTIN 100 MG CAP PO SCH ×3 (10:11→22:32)
[2018-04-30] MEDS: DEXAMETHASONE 4 MG TAB PO SCH ×2 (10:11→20:43)
[2018-04-30] MEDS: SENNOSIDES/DOCUSATE SODIUM TAB PO SCH ×2 (10:12→20:43)
--- NOTE | 2018-04-30 19:22 | TRAUMAPN ---
Trauma Progress Note Assessment/Plan: 04/30/2018 Asked by nursing to re consult due to "bilateral hip pain" Assessment: Seems to not remember what he has been told on multiple occasions (presumably due to head injury) He told nursing that he had bilateral hip pain. Xrays negative. Working with an book binder it becomes clear that " bilateral hip pain" is actually bilateral SI joint pain and coccygeal pain. Xrays reviewed and there is no evidence of structural abnormalities in the hips. I did not see any coccygeal injury/displacement. I reassured the patient ( using an book binder) that his pains focal and radicular are probably related to his injuries and may take some time to resolve. Medications are adjusted to see if other similar medicines may work more efficiently. Plan: Trauma will sign off again. If there is anything else that we can address please reconsult Objective: Vital Signs Temp Pulse Resp BP Pulse Ox 36.4 C 79 15 136/63 H 95 04/30/18 15:24 04/30/18 15:24 04/30/18 15:24 04/30/18 15:24 04/30/18 15:24 Laboratory Results 04/28/18 04:34 04/30/18 04:44 04/29/18 04/30/18 05/01/18 05:59 05:59 05:59 Intake Total 350 1200 Output Total 350 400 Balance -350 -50 1200 PT 12.7 SEC (12.0-15.0) 04/24/18 13:15 INR 0.93 (0.83-1.16) 04/24/18 13:15
[2018-04-30] MEDS: PANTOPRAZOLE SODIUM 40 MG TAB PO SCH (20:43)
[2018-04-30] MEDS: ACETAMINOPHEN 500 MG TAB PO SCH (20:44)
[2018-04-30] MEDS: CYCLOBENZAPRINE 10 MG TAB PO SCH (22:32)
[2018-04-30] MEDS: LORazepam 1 MG TAB PO SCH (22:32)
[2018-05-01] MEDS: oxyCODONE IR 5 MG TAB PO PRN ×6 (00:15→21:53)
[2018-05-01] MEDS: ACETAMINOPHEN 500 MG TAB PO SCH ×3 (02:54→20:04)
--- NOTE | 2018-05-01 08:04 | NEUSURGPN ---
Assessment/Plan: Assessment: 28 y/o male s/p fall 20 ft off second story roof with neck pain, low back pain and body numbness. Has a T12 mild compression fracture. Initially complaining of body numbness and weakness but this seems effort limited 2/2 pain Plan: -prior cervical MRI demonstrates moderate stenosis at C6/7 and disc degeneration at C5/6 but there is no cord signal changes -continue hard cervical collar as patient as has neck pain-[place] fitting well -continue [place] brace when >60 degrees and out of bed -optimize pain management, started Gabapentin 100mg TID, patient still reports tingling in all extremities -patient complaining of right foot pain, xrays done did not demonstrate and acute fracture -PT/OT/LOAN BROKER-CPM -Steroids-will continue to taper off quickly -Can work towards dispo if improved in the next 1-2 days, case management to eval dispo options -Patient reported depression, having flashbacks of fall and trouble sleeping yesterday. Psych consulted-we appreciate their input on his care. -Please notify NS with any change in neuro/motor exam -discussed patient with Dr Duncan Subjective: Pt resting in bed, c/o back and neck pain. Objective: AAOx3 NAD VSS MAEx4 Motor 5/5 BUE/BLE but poor effort C collar on Urinary Catheter in Place: No Catheter Insertion Date: 04/24/18 - Physician Discussed Patient with Dr.: Duncan Neurosurgery Physical Exam - Vitals, I&O, Labs I and O 04/30/18 05/01/18 05/02/18 05:59 05:59 05:59 Intake Total 350 1700 Output Total 400 875 Balance -50 825 Intake: Oral (ml) 350 1700 Output: Urine (ml) 400 875 Toilet 400 400 Urinal 475 Other: Intake Quantity Yes Sufficient Number of Voids Toilet 1 1 Number of Stools Toilet 1 Vital Signs Temp Pulse Resp BP Pulse Ox 36.4 C 70 16 136/67 H 93 05/01/18 07:58 05/01/18 07:58 05/01/18 07:58 05/01/18 07:58 05/01/18 07:58 Laboratory Results 04/28/18 04:34 04/30/18 04:44 ICD10 Worksheet Patient Problems: Problems Problem Status Onset Fall from roof Acute Thoracic compression fracture Acute
--- NOTE | 2018-05-01 08:29 | PDCONSULT ---
Place Change Roof Bolter Note: PSYCHIATRY MD CONSULT FOLLOW-UP Pt interviewed briefly on 04/30/18 with hospital medical assistant, Juany. RN present. also in room. Continues to report difficulty sleeping, with intrusive recollections of fall, sometimes feels he is falling again as he drifts off to sleep which then awakens him. Also describes episodes of heart palpitations, which seem to be associated with feelings of increased anxiety. Continues with worry about his prognosis and recovery, whether he will be able to return to work and support family, as noted in initial psych consult. Does not think Remeron has been helping sleep at night. RN notes he has been sleeping, or seems to, but patient reports he is awake with eyes closed trying to sleep but does hear staff enter room. Does feel down, occasional crying spells, but trying to stay hopeful. Again asked about fall, and consistently stated he recalls falling, then no memories until awakened in the hospital with family around. Complains of concentration and memory difficulty, also reports he seems forgetful. Reports ongoing episodic headaches, sometimes just all over and sometimes starting R side of neck and radiating up to head on R side. Reports still with weakness in extremities, and also paresthesias/numbness/ tingling. Discussed options briefly including recommendation to start SSRI for anxiety/ depression and use prn Lorazepam for anxiety as SSRI uptitrated and hopefully takes more effect over the next few weeks. MSE: sitting upright in chair, with back brace and neck collar. good eye contact. nml rate speech, low/nml volume. restricted/depr affect. no evid of psychosis. did not voice any SI. DX: Adj d/o with depr mood. Acute stress d/o Neurocognitive d/o, unspecified, due to TBI REC: Discussed with trauma Dr. Sandoval, who had made recent med changes incl d/c mirtazapine and prn melatonin, and had d/cd prn valium. Will d/w primary team as well. Agree with d/c mirtazapine, since pt not clearly noting any benefit. Recommend start Sertraline at low dose 25mg po QAM for depression and acute stress sxs since pt also at risk for developing major depressive d/o and ptsd ( see initial consult). Since now off Valium prn, for anxiety will instead recommend starting Lorazepam 0.5mg BID prn, or rather schedule BID in am and midday, since pt reported not being sure how to request this med if no gear tooth grinding machine operator around, and schedule Ativan 1mg QHS, to help anxiety at nighttime and sleep. As patient describes his palpitations, they seem associated with anxiety, but will d/w team. Cont with PT, OT, ST.
[2018-05-01] MEDS: PANTOPRAZOLE SODIUM 40 MG TAB PO SCH ×2 (09:13→20:05)
[2018-05-01] MEDS: SENNOSIDES/DOCUSATE SODIUM TAB PO SCH ×2 (09:13→20:06)
[2018-05-01] MEDS: GABAPENTIN 100 MG CAP PO SCH ×3 (09:13→21:52)
[2018-05-01] MEDS: CYCLOBENZAPRINE 10 MG TAB PO SCH ×3 (09:13→21:52)
[2018-05-01] MEDS: LORazepam 0.5 MG TAB PO SCH ×2 (09:13→12:54)
[2018-05-01] MEDS: ENOXAPARIN 40 MG/0.4 ML SYR SC SCH (09:13)
[2018-05-01] MEDS: SERTRALINE HCL 25 MG TAB PO SCH (09:14)
[2018-05-01] MEDS: DEXAMETHASONE 4 MG TAB PO SCH (09:14)
--- NOTE | 2018-05-01 16:47 | ASMTCMCOM ---
CM Note CM Note Notes: As pt has no payer source for rehab, pt to d/c home with family support. [facility] inpatient rehab has followed pt but it does not appear they can take him due to lack of payer, spoke with Oma in admissions. Pt reports he is exploring staying with his in-laws since their home has no stairs. Pt states he would be open to outpatient mental health treatment but is concerned about cost. Pt has identified finances as stressor and today this CM provided pt and financial resources. Pt is talking to his boss about getting paid, has seen no money yet and knows he likely will need to consult an document review attorney. Pt identified a need for a letter to ask for postponement of a court date, to get fax and this CM to follow up tomorrow. Date Signed: 05/01/2018 04:47 PM Electronically Signed By:BIN Garcia
[2018-05-01] MEDS: LORazepam 1 MG TAB PO SCH (20:05)
[2018-05-02] MEDS: ACETAMINOPHEN 500 MG TAB PO SCH ×2 (02:39→10:09)
[2018-05-02] MEDS: oxyCODONE IR 5 MG TAB PO PRN ×5 (02:40→22:55)
--- NOTE | 2018-05-02 10:00 | NEUSURGPN ---
Assessment/Plan: Assessment: 28 y/o male s/p fall 20 ft off second story roof with neck pain, low back pain and body numbness. Has a T12 mild compression fracture. Initially complaining of body numbness and weakness but this seems effort limited 2/2 pain Plan: -Pt seen and examined with soap press feeder present this am -MRI brain completed - shows left frontal lobe parasylvian 1cm cortical gliosis possibly from this recent trauma or old trauma. Discussed with patient and he expressed understanding. We also discussed that he has sustained a concussion. -MRI C spine reviewed and pt has moderate stenosis at C67 but no overt cord compression, myelomalacia, or evidence of cord injury to explain any arm or leg weakness -continue hard cervical collar as patient as has neck pain-[place] fitting well. Tried to clear C spine today but unable to given continued neck pain. Discussed with patient that his neck pain is likely primarily muscular in nature given the significant trauma he sustained with this large fall. -continue Adore brace when >60 degrees and out of bed -optimize pain management, is on Gabapentin 200mg TID, patient still reports tingling in all extremities. D/w Dr Duncan and will add celebrex. Prefer to avoid adding additional narcotics. -patient complaining of right foot pain, xrays done did not demonstrate and acute fracture -PT/OT/RETREAD MOLD OPERATOR-CPM -Steroids-will continue to taper off quickly in next 48 hours. -Can work towards dispo if improved in the next 1-2 days, case management to eval dispo options - current plan is for home with family. I discussed with patient that we are certainly in a difficult situation with him not having any insurance assistance coverage. Ideally he would go to inpatient rehab but this does not appear to be an option for him. We discussed that he is not going to be "perfect" when he goes home. He will certainly still have pain and will require further recovery after this significant trauma. Patient today states that he does not think he can go home today. Will reassess tomorrow for possible DC. -Pt reports pain during strength evaluation and states the pain is keeping him from giving full effort. -Patient reported depression, having flashbacks of fall and trouble sleeping. Psych consulted-we appreciate their input on his care. -Please notify NS with any change in neuro/motor exam -discussed patient with Dr Duncan Subjective: Pt resting in bed, c/o 8-9/10 pain in his neck and entire spine. Objective: AAOx3 NAD VSS MAEx4 Motor 5/5 BUE/BLE but pain limited on examination C spine with midline tenderness to palpation - c-collar replaced KONG wrap over right foot Urinary Catheter in Place: No Catheter Insertion Date: 04/24/18 - Physician Discussed Patient with : [facility] Neurosurgery Physical Exam - Vitals, I&O, Labs I and O 05/01/18 05/02/18 05/03/18 05:59 05:59 05:59 Intake Total 1700 1550 Output Total 875 300 400 Balance 825 1250 -400 Intake: Oral (ml) 1700 1550 Output: Urine (ml) 875 300 400 Toilet 400 400 Urinal 475 300 Other: Intake Quantity Yes Sufficient Number of Voids Toilet 1 1 Number of Stools Toilet 1 1 Vital Signs Temp Pulse Resp BP Pulse Ox 36.8 C 81 14 130/76 H 93 05/02/18 08:00 05/02/18 08:00 05/02/18 08:00 05/02/18 08:00 05/02/18 08:00 Laboratory Results 04/28/18 04:34 04/30/18 04:44 ICD10 Worksheet Patient Problems: Problems Problem Status Onset Fall from roof Acute Thoracic compression fracture Acute
[2018-05-02] MEDS: GABAPENTIN 100 MG CAP PO SCH ×3 (10:08→22:51)
[2018-05-02] MEDS: ENOXAPARIN 40 MG/0.4 ML SYR SC SCH (10:08)
[2018-05-02] MEDS: DEXAMETHASONE 4 MG TAB PO SCH (10:10)
[2018-05-02] MEDS: LORazepam 0.5 MG TAB PO SCH ×2 (10:10→14:14)
[2018-05-02] MEDS: PANTOPRAZOLE SODIUM 40 MG TAB PO SCH ×2 (12:07→22:50)
[2018-05-02] MEDS: CYCLOBENZAPRINE 10 MG TAB PO SCH ×3 (12:07→22:52)
[2018-05-02] MEDS: SENNOSIDES/DOCUSATE SODIUM TAB PO SCH ×2 (12:07→22:50)
[2018-05-02] MEDS: SERTRALINE HCL 25 MG TAB PO SCH (12:14)
[2018-05-02] MEDS ORDERED: SERTRALINE HCL 25 MG TAB PO ONE (12:45)
--- NOTE | 2018-05-02 16:36 | ASMTCMCOM ---
CM Note CM Note Notes: This CM faxed letter to [facility] court (F: [phone]) requesting postponement of court date for an incident with a dog. Attempted to make pt a hospital d/c appointment at [facility], their phone lines are down per SALMA Paredes who cannot schedule pt and recommends pt call Saturday or Saturday, updated pt . Pt and MIL calling loan closets this afternoon for DME. CM to follow. D/c plan of care: Home with family support. Date Signed: 05/02/2018 04:35 PM Electronically Signed By:BIN Garcia
[2018-05-02] MEDS ORDERED: MELATONIN 3 MG TAB PO SCH (21:00)
[2018-05-02] MEDS: clonazePAM 0.5 MG TAB PO SCH (22:51)
[2018-05-03] MEDS: ACETAMINOPHEN 500 MG TAB PO SCH ×3 (02:03→12:22)
[2018-05-03] MEDS: oxyCODONE IR 5 MG TAB PO PRN ×3 (03:29→15:48)
--- NOTE | 2018-05-03 07:11 | SOAPPROG ---
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 05/02/18 19:33 late entry Met with patient with dialysis tech Opal wisdom 45min. Family present including and 's family (sister, 11mo neice, and mother). Patient expressed feeling not sure if ready to go home tomorrow, still c/o coccyx, hips and rib pain. Explained to patient that he would not have complete resolution of pain at d/c. Also has been using front-wheeled walker and had concerns about steep stairs going down to the basement which they rent. Explained that he cannot be using stairs or will end up with another fall at his current level of functioning. Not cleared by PT for stairs. [id number] states he and are welcome to stay with her, which was team understanding of where he would d/c. Patient seemed a bit reluctant. Unclear home situation with [id number] and why patient has some reluctance, but again stated it would not be safe to go home if going to place with so many stairs. Still with episodes of feeling anxious, and sleeping very lightly, not restful. Feels no s/e from Zoloft but feels med changes have been a little helpful already. Wondering about med for sleep. Discussed s/e and expectations for this medication. Denied any SI plans or intent to harm self. Occasional fleeting passive SI but thinks of family, unborn son due in 2 mo and wanting to hold him/ play with him, and is hopeful about recovery. Has spiritual beliefs also which support him. 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 Apparently emergency Medicaid is monthly- if applied for in March, will only be good until end of March, so will have needed to reapply in early April for coverage of April. Patient and not sure if they have emergency medicaid for April, and this would be problematic b/c would not be able to fill any medication prescriptions , and this would also likely cause problems in trying to get set up with follow- up services especially more than just primary care such as any outpt PT, OT. MSE: more engaged, nml speech rate/vol, mood a little anxious about future, affect appropriate range to content of conversation, no psychosis, thoughts seemed a bit perseverative on pain and pt expressed not feeling ready for d/c, not confident in his physical functioning. Denied SI. i/j seem limited DX: Acute stress disorder Adjustment d/o with depr mood Neurocognitive d/o, unspecified PLAN; -concern about pt still considering return to home with steep stairs to basement where they live. not sure if he is just not wanting to live with mother -in-law and her home situation. again advised it would NOT be safe to have stairs. patient asks when he can take stairs- PT would need to clear. -concerns about whether emergency medicaid in place for month of April, apparently need to reapply if only done for March which would only be good for March. If this is not in place, patient will not be able to fill any of his prescriptions for meds and will likely be further limited in accessing services after d/c -no f/u scheduled at [facility] at this time. would be best if appt already set up before d/c to facilitate f/u, but will need to call on mon -Zoloft increased to 50mg qam today. no reported s/e. rec f/u with PCP and counseling thru [facility] for further changes. -Change ativan 0.5/0.5/1 to klonopin 0.25mg bid. states he felt recent med changes were helpful, presumably the ativan, and so perhaps longer acting may help for longer period and through night for anxiety until zoloft taking effect. Would keep at low dose b/c cognitive effects and bzd risks. discussed s/e and risks. pt reports he does not drink any etoh anyway. add melatonin 3mg for sleep. -Would be better if d/c could happen early during week, to give time to assess effect of recent med changes incl by neurosurg, cont with PT/OT/ST, and to ensure no issues with accessing f/u, filling meds, having services in place etc. But if d/c over weekend, family seems to have necessary info for f/u. would need to be able to fill Rxs however. Objective: Vital Signs Temp Pulse Resp BP Pulse Ox 36.8 C 96 16 123/64 H 94 05/02/18 23:17 05/02/18 23:17 05/02/18 23:17 05/02/18 23:17 05/02/18 23:17 Laboratory Results 04/28/18 04:34 04/30/18 04:44 05/02/18 05/03/18 05/04/18 05:59 05:59 05:59 Intake Total 1550 500 Output Total 300 400 Balance 1250 100 PT 12.7 SEC (12.0-15.0) 04/24/18 13:15 INR 0.93 (0.83-1.16) 04/24/18 13:15 - Time Spent With Patient Time Spent With Patient: 45min ICD10 Worksheet Patient Problems: Problems Problem Status Onset Fall from roof Acute Thoracic compression fracture Acute
[2018-05-03 07:52] VITALS: BP 120/69
[2018-05-03] MEDS ORDERED: SERTRALINE HCL 50 MG TAB PO SCH (09:00)
[2018-05-03] MEDS: ENOXAPARIN 40 MG/0.4 ML SYR SC SCH (09:23)
[2018-05-03] MEDS: CYCLOBENZAPRINE 10 MG TAB PO SCH ×2 (09:24→15:44)
[2018-05-03] MEDS: DEXAMETHASONE 4 MG TAB PO SCH (09:24)
[2018-05-03] MEDS: PANTOPRAZOLE SODIUM 40 MG TAB PO SCH (09:24)
[2018-05-03] MEDS: GABAPENTIN 100 MG CAP PO SCH (09:24)
[2018-05-03] MEDS: clonazePAM 0.5 MG TAB PO SCH (09:25)
[2018-05-03] MEDS: SENNOSIDES/DOCUSATE SODIUM TAB PO SCH (09:45)
--- NOTE | 2018-05-03 10:10 | SOAPPROG ---
SOAP Progress Note Assessment/Plan: Assessment: 28 yo M with T12 compression fracture and C6/7 disc herniation after fall Plan: stable x-rays of thoracic spine stable from 05/02 hard collar at all times [place] brace when out of bed discharge home with family support please call with neuro changes discussed with Dr Duncan 05/03/18 10:07 Subjective: continued neck pain and back pain, legs feel generally weak. N paresthesias. academic interventionist at bedside. Objective: Vital Signs Temp Pulse Resp BP Pulse Ox 36.4 C 72 16 120/69 93 05/03/18 07:51 05/03/18 07:51 05/03/18 07:51 05/03/18 07:51 05/03/18 07:51 Laboratory Results 04/28/18 04:34 04/30/18 04:44 05/02/18 05/03/18 05/04/18 05:59 05:59 05:59 Intake Total 1550 500 Output Total 300 400 Balance 1250 100 PT 12.7 SEC (12.0-15.0) 04/24/18 13:15 INR 0.93 (0.83-1.16) 04/24/18 13:15 AAOx4, +FC PERRL, EOMI, no facial droop 5/5 but effort dependant + Light touch ICD10 Worksheet Patient Problems: Problems Problem Status Onset Fall from roof Acute Thoracic compression fracture Acute
--- NOTE | 2018-05-03 14:46 | ASMTDCNOTE ---
Case Management Discharge Discharge Order Complete? Answers: Yes Followup Appointment 05/16/2018 12:00 AM Patient to Obtain Answers: Independently Medications Transportation Arranged Answers: Family/Friends Family Notified Answers: Yes Discharge Comments Notes: Patient discharged home with family. I gave them a copy of the letter we faxed to [facility]. They know to follow up with Isa on Saturday 05/05. They will also f/u with Dr Duncan in two weeks. Date Signed: 05/03/2018 02:45 PM Electronically Signed By:Jodi Rock RN
--- NOTE | 2018-05-07 15:52 | GDS ---
[f rep st] DISCHARGE SUMMARY ADMISSION DIAGNOSES: 1. T12 compression fracture. 2. 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 HISTORY AND PHYSICAL: Please see admission history and physical. 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 He was evaluated at the [facility], where he was found to have a T12 compression fracture. He was admitted and treated with a brace. He was admitted and seen by the cleaning team member, as well as Trauma. He made very slow progress with physical therapy and occupational therapy. He had multiple imaging studies performed of his brain, hip, thoracic spine, cervical spine, and even lumbar spine. Later on , as it was closer to discharge, he was seen by Psychiatry. He was seen by a psychiatry MD due to his traumatic experience. An MRI of the brain was obtained , which did not show any acute traumatic brain injury. He made slow progress with physical therapy and occupational therapy, and he was eventually discharged home with home health care on 05/03/2018. The patient was discharged with recommendations that he follow up with neurosurgery in approximately 2-4 weeks, with repeat x-rays of his thoracic spine. It was also recommended that he follow up with Psychiatry and his primary care physician. /[id number]/MODL MTDD
== END 2018-05-03 15:50 | disposition home or self-care (01) | DRG 552 ==
LOC: EDBD 13:23 → F3N 15:48 → OBSVTOIN 17:18 → F2W 19:47 → F2N 20:00 → F3N 04-26 14:30
PROVIDERS: ADMIT Surgery; ATTEND Neurological Surgery
DX: S22.080A Wedge compression fracture of T11-T12 vertebra, initial encounter for closed fracture (principal); S06.0X9A Concussion with loss of consciousness of unspecified duration, initial encounter; S13.171A Dislocation of C6/C7 cervical vertebrae, initial encounter; J43.9 Emphysema, unspecified; M48.02 Spinal stenosis, cervical region; M54.5 Low back pain; M53.3 Sacrococcygeal disorders, not elsewhere classified; M79.671 Pain in right foot; F43.0 Acute stress reaction; M25.552 Pain in left hip; F43.21 Adjustment disorder with depressed mood; E87.6 Hypokalemia; R33.9 Retention of urine, unspecified; R20.0 Anesthesia of skin; W13.2XXA Fall from, out of or through roof, initial encounter; Y92.61 Building [any] under construction as the place of occurrence of the external cause; Y99.0 Civilian activity done for income or pay
CPT/HCPCS: 82435-PO; 82565-PO; 82607-90; 82947-PO; 84132-PO; 84295-PO; 84481-90; 84520-PO; 85014-PO; 92507-GN; 92523-GN; 92610-GN; 96374; 97116-GP; 97162-GP; 97166-GO; 97530-GO; 97530-GP; 97535-GO; G0480; J1100; J1170; J1650; J1885; J2060; J2270; J3010; Q9967